=== PATIENT | female | born 1990 | race Caucasian/White ===

== ENCOUNTER 2022-08-14 21:54 | Emergency (ER) | payer OTHER ==
[~2022-08-14] VITALS: Ht 167.6 cm; Wt 88.1 kg
[2022-08-15] MEDS ORDERED: azithromycin 250mg tablet PO ONE (00:20)
[2022-08-15] MEDS ORDERED: acetaminophen 325mg tablet PO ONE (00:20)
[2022-08-15] MEDS ORDERED: predniSONE 20 mg tablet PO ONE (00:20)
[2022-08-15] MEDS ORDERED: AZIT-83 PO (00:21)
[2022-08-15] MEDS ORDERED: PRED20TA PO (00:21)
[2022-08-15 00:33] VITALS: BP 115/85
[2022-08-15] MEDS ORDERED: LIDOcaine Viscous 15ml cup MM ONE (00:45)
[2022-08-15] MEDS ORDERED: LIDO20SO16 PO (00:48)
== END 2022-08-15 01:56 | disposition home or self-care (01) ==
LOC: ER 21:55
DX: J02.9 Acute pharyngitis, unspecified (principal); Z91.041 Radiographic dye allergy status
CPT/HCPCS: 87081; 87880; 99284; J7512

== ENCOUNTER 2022-11-04 10:18 | Emergency (ER) | payer OTHER ==
[~2022-11-04] VITALS: Ht 170.2 cm; Wt 89.0 kg
[~2022-11-04 10:18] MED LIST: LIDO20SO16 PO
[2022-11-04 11:11] VITALS: BP 109/70
[2022-11-04] MEDS ORDERED: IBUP-1984 PO (13:06)
== END 2022-11-04 13:16 | disposition home or self-care (01) ==
LOC: ER 10:18
DX: S99.922A Unspecified injury of left foot, initial encounter (principal); Z91.041 Radiographic dye allergy status; X58.XXXA Exposure to other specified factors, initial encounter; Y93.89 Activity, other specified; Y92.89 Other specified places as the place of occurrence of the external cause; Y99.8 Other external cause status
CPT/HCPCS: 73660; 99283

== ENCOUNTER 2023-08-17 14:11 | Emergency (ER) | payer SELFPAY ==
[~2023-08-17] VITALS: Ht 167.6 cm; Wt 93.9 kg
[2023-08-17] MEDS ORDERED: ONDA4TAB12 PO (15:47)
[2023-08-17 16:07] VITALS: BP 135/84; PULSE 89; TEMP 99; O2SAT 98
[2023-08-17 16:11] VITALS: RESP 20
== END 2023-08-17 16:11 | disposition home or self-care (01) ==
LOC: ER 14:12
DX: U07.1 COVID-19 (principal); R11.2 Nausea with vomiting, unspecified; Z91.041 Radiographic dye allergy status; Z79.899 Other long term (current) drug therapy
CPT/HCPCS: 36415; 87811; 99283

== ENCOUNTER 2023-11-23 08:17 | Emergency (ER) | payer BC ==
[~2023-11-23] VITALS: Ht 167.6 cm; Wt 101.0 kg
[~2023-11-23 08:17] MED LIST changes: +ONDA4TAB12 PO
[2023-11-23 08:22] VITALS: BP 129/85; PULSE 76; RESP 18; TEMP 98; O2SAT 98
== END 2023-11-23 11:19 | disposition home or self-care (01) ==
LOC: ER 08:17
DX: M79.642 Pain in left hand (principal); Z91.041 Radiographic dye allergy status; Z79.899 Other long term (current) drug therapy
CPT/HCPCS: 29130; 73140; 99283; A6449

== ENCOUNTER 2024-01-04 16:31 | Emergency (ER) | payer BC ==
[~2024-01-04] VITALS: Ht 167.6 cm; Wt 99.0 kg
[2024-01-04 17:00] VITALS: BP 112/77; PULSE 78; TEMP 97.6; O2SAT 97
[2024-01-04] MEDS: TETanus/Pertussis (Acell)/Diphther VAC/PF (Tdap-Adult) 0.5ml syringe IMVAC ONE (18:07)
[2024-01-04 18:10] VITALS: RESP 18
[2024-01-04] MEDS: HYDROcodone/acetaminophen 5mg/325mg tablet PO ONE (18:10)
== END 2024-01-04 18:21 | disposition home or self-care (01) ==
LOC: ER 16:32
DX: S60.512A Abrasion of left hand, initial encounter (principal); Z91.041 Radiographic dye allergy status; W23.1XXA Caught, crushed, jammed, or pinched between stationary objects, initial encounter; Y93.89 Activity, other specified; Y92.89 Other specified places as the place of occurrence of the external cause; Y99.8 Other external cause status
CPT/HCPCS: 29125; 73130; 90471; 90715; 99283; A6258; A6449

== ENCOUNTER 2024-03-14 19:51 | Emergency (ER) | payer BC ==
[~2024-03-14] VITALS: Ht 165.1 cm; Wt 95.5 kg
[~2024-03-14 19:51] MED LIST changes: +ONDA-243 PO; -ONDA4TAB12 PO
[2024-03-14 19:58] VITALS: BP 130/83; PULSE 103; RESP 14; TEMP 98.3; O2SAT 98
[2024-03-14 20:39] LABS: BASOPHILS # (AUTO) 0.1 X10'3 (0-0.2); BASOPHILS % (AUTO) 0.9 % (0-1); EOSINOPHILS % (AUTO) 0.3 % (0-6); HEMATOCRIT 44.4 % (35.0-45.0); HEMOGLOBIN 14.9 g/dl (12.0-16.0); LYMPHOCYTES # (AUTO) 1.9 X10'3 (1.1-4.8); LYMPHOCYTES % (AUTO) 26.1 % (21-51); MEAN CORPUSCULAR HEMOGLOBIN 28.4 PG (27.0-31.0); MEAN CORPUSCULAR HGB CONC 33.5 g/dL (33.0-36.5); MEAN CORPUSCULAR VOLUME 84.9 FL (78-98); MEAN PLATELET VOLUME 9.1 FL (7.4-10.4); MONOCYTES # (AUTO) 0.5 X10'3 (0-0.9); MONOCYTES % (AUTO) 7.3 % (2-12); NEUTROPHILS # (AUTO) 4.8 X10'3 (1.8-7.7); NEUTROPHILS % (AUTO) 65.4 % (42-75); PLATELET COUNT 230 X10'3 (140-440); RED BLOOD COUNT 5.22 X10'6 (4.20-5.60); RED CELL DISTRIBUTION WIDTH 13.6 % (11.5-14.5); WHITE BLOOD COUNT 7.3 X10'3 (4.5-11.0)
[2024-03-14 20:40] LABS: BILIRUBIN,URINE SMALL (Neg); CLARITY,URINE SLIGHTLY CLOUDY (Clear); COLOR,URINE YELLOW (Yellow); GLUCOSE, URINE NEGATIVE (Neg); KETONES,URINE NEGATIVE (Neg); LEUKOCYTE ESTERASE ,URINE NEGATIVE (Neg); NITRITES, URINE NEGATIVE (Neg); OCCULT BLOOD,URINE TRACE-INTACT (Neg); PROTEIN,URINE NEGATIVE (Neg); UA COLLECTION TYPE CLN CATCH MIDSTREAM
[2024-03-14 20:46] LABS: MUCUS STRANDS MANY /LPF (Neg); SQUAMOUS EPITHELIAL CELL,UR MANY /LPF (FEW)
[2024-03-14 20:47] LABS: BACTERIA,URINE 2+ /HPF (Neg); WBC,URINE 0-4 /HPF (0-4)
[2024-03-14 20:49] LABS: TRANSITIONAL EPI CELLS,URINE FEW /HPF
[2024-03-14 20:50] LABS: ALANINE AMINOTRANSFERASE 20 U/L (12-78); ALBUMIN 3.6 G/DL (3.4-5.0); ALBUMIN/GLOBULIN RATIO 0.9 (1.1-1.5); ALKALINE PHOSPHATASE 74 IU/L (46-116); ANION GAP 9 (8-16); ASPARTATE AMINO TRANSFERASE 8 U/L (10-37); BILIRUBIN,TOTAL 1.1 MG/DL (0.1-1.0); BLOOD UREA NITROGEN 11 MG/DL (7-18); BUN/CREATININE RATIO 9.1 (10.0-20.0); CALCIUM 8.5 MG/DL (8.5-10.1); CHLORIDE 104 MMOL/L (99-107); CREATININE 1.21 MG/DL (0.40-0.90); GLUCOSE 107 MG/DL (70-104); POTASSIUM 3.6 MMOL/L (3.5-5.1); SODIUM 138 MMOL/L (135-145); TOTAL CARBON DIOXIDE 25.5 MMOL/L (24-32); TOTAL PROTEIN 7.6 G/DL (6.4-8.2); eCRCL 60 ML/MIN; eGFR 52 ML/MIN
[2024-03-14 21:00] LABS: BETA HCG,QUANTITATIVE < 1.0 mIU/ml
[2024-03-14] MEDS: ondansetron 4mg rapidly disintigrating tab PO ONE (21:16)
[2024-03-14] MEDS: SUMAtriptan succ. 6 MG/0.5ml vial SQ ONE (21:17)
[2024-03-14] MEDS ORDERED: ONDA-245 PO (21:55)
[2024-03-14] MEDS ORDERED: SUMA50TA PO (21:55)
== END 2024-03-14 22:22 | disposition home or self-care (01) ==
LOC: ER 19:51
DX: R51.9 Headache, unspecified (principal); N91.2 Amenorrhea, unspecified; Z91.041 Radiographic dye allergy status; Z79.899 Other long term (current) drug therapy
CPT/HCPCS: 36415; 80053; 81001; 84702; 85025; 96372; 99283; J3030